=== PATIENT | male | born 1975 | race Caucasian/White ===

== ENCOUNTER 2018-02-21 20:36 | Emergency (ER) | payer OTHER ==
[~2018-02-21] VITALS: Ht 185.4 cm; Wt 110.2 kg
[~2018-02-21 20:36] MED LIST: FLEXERIL10 MG PO; LIDODERM 5% P1 PATCH TD; LORTAB 5-325 M1 EACH PO; NAPROSYN500 MG PO
[2018-02-21 21:33] LABS: HEMATOCRIT 43.2 % (38.0-50.0); HEMOGLOBIN 15.2 G/DL (12.5-16.6); MCH 31.9 PG (29.0-34.0); MCHC 35.2 G/DL (30.0-36.0); MCV 90.8 FL (86-99); PLATELET COUNT 283 K/uL (156-360); RBC DIS.WIDTH-CV 11.9 % (11.8-14.6); RBC DIS.WIDTH-SD 39.6 % (39-53); RED BLOOD COUNT 4.76 M/uL (4.00-5.50); WHITE BLOOD COUNT 6.6 K/uL (4.1-10.2)
[2018-02-21 21:50] LABS: CHLORIDE 100 mEq/L (99-109); POTASSIUM 3.2 mEq/L (3.7-5.4); SODIUM 133 mEq/L (136-147)
[2018-02-21 21:52] LABS: GLUCOSE 104 mg/dL (70-99)
[2018-02-21 21:56] LABS: CREATININE 0.8 mg/dL (0.6-1.3); GFR ESTIMATE (CALCULATED) > 59 mL/min/ (58.99-99999)
[2018-02-21 21:57] LABS: UREA NITROGEN (BUN) 12 mg/dL (9-23)
[2018-02-21 22:03] LABS: TROP-I INTERPRETATION NEGATIVE; TROPONIN-I < 0.01 ng/mL (0.0-0.30)
[2018-02-22 01:07] LABS: TROP-I INTERPRETATION NEGATIVE; TROPONIN-I < 0.01 ng/mL (0.0-0.30)
[2018-02-22] MEDS ORDERED: ZOFRAN ODT8 MG PO (02:45)
[2018-02-22 03:36] VITALS: BP 128/84
== END 2018-02-22 03:37 | disposition home or self-care (01) ==
LOC: EME 20:36
PROVIDERS: Physician Assistant
DX: R07.89 Other chest pain (principal); R11.2 Nausea with vomiting, unspecified; E87.6 Hypokalemia
CPT/HCPCS: 71046; 71250; 80048; 83605; 84484; 85027; 87040; 93005; 99281; 99285